=== PATIENT | male | born 1965 | race Caucasian/White ===

== ENCOUNTER → 2017-06-24 | Emergency (ER) | payer OTHER ==
[~2017-06-24] VITALS: Ht 185.4 cm; Wt 98.9 kg
[~2017-06-24] MED LIST: ATORVASTATIN CA40 MG PO
== END | disposition left against medical advice (07) ==
LOC: ER 19:50 → CPU-OBS 20:00
DX: R07.89 Other chest pain (principal)
CPT/HCPCS: G0378; G0379; 93005